=== PATIENT | female | born 1950 | race Caucasian/White ===

== ENCOUNTER → 2016-09-14 | Outpatient (CLI) | payer OTHER | LOC: BRMIMAGING 13:07 | PROVIDERS: ATTEND Internal Medicine Rheumatology | DX: Z13.820 Encounter for screening for osteoporosis (principal); M85.80 Other specified disorders of bone density and structure, unspecified site ==

== ENCOUNTER → 2017-07-31 | Outpatient (CLI) | payer OTHER | LOC: BRMIMAGING 11:58 | PROVIDERS: ATTEND Nurse Practitioner | DX: E04.2 Nontoxic multinodular goiter (principal) ==

== ENCOUNTER → 2017-08-08 | Outpatient (CLI) | payer OTHER ==
[~2017-08-08] MED LIST: LIDOCAINE 1% 300 MG/30 ML SDV ONE
== END ==
LOC: FIMAGING 11:11
PROVIDERS: ATTEND Nurse Practitioner
PROC: 0G9G3ZX Drainage of Left Thyroid Gland Lobe, Percutaneous Approach, Diagnostic (ICD-10-PCS; principal; 2017-08-08)
DX: E04.1 Nontoxic single thyroid nodule (principal)

== ENCOUNTER 2017-08-22 07:54 | Observation (INO) | payer OTHER ==
[2017-08-22] MEDS ORDERED: THROMBIN (BOVINE) 5,000 UNIT VIAL TP ONE (07:57)
[2017-08-22] MEDS ORDERED: BUPIVACAINE/EPI 0.5% 30 ML SDV ONE (07:57)
--- NOTE | 2017-08-22 08:31 | PDHPUP ---
History & Physical Update H&P update statement: This history and physical update is based on an assessment of the patient which was completed after admission or registration (within 24 hours), but prior to the surgery/procedure. H&P update: H&P reviewed & patient examined, no change in patient's condition since H&P completed
[2017-08-22] MEDS ORDERED: CLINDAMYCIN 900 MG/DEXTROSE 50 ML IV ONE (08:34)
[2017-08-22] MEDS ORDERED: LR 1,000 ML IV ONE ×2 (08:35→10:10)
[2017-08-22] MEDS ORDERED: LIDOCAINE 1% 2 ML INJ ID PRN (08:35)
--- NOTE | 2017-08-22 08:39 | PDANEPAE ---
ANE History of Present Illness 66 year old female w/ PMHx of Hashimotos thyroiditis & Rheumatoid Arthritis (on immunosuppression) presents for thyroidectomy. ANE Past Medical History - Cardiovascular History Hx Hypertension: No Hx Arrhythmias: No Hx Chest Pain: No Hx Coronary Artery / Peripheral Vascular Disease: No Hx CHF / Valvular Disease: No Hx Palpitations: No - Pulmonary History Hx COPD: No Hx Asthma/Reactive Airway Disease: No Hx Recent Upper Respiratory Infection: No Hx Oxygen in Use at Home: No Hx Sleep Apnea: No Sleep Apnea Screening Result - Last Documented: Negative - Neurologic History Hx Cerebrovascular Accident: No Hx Seizures: No Hx Dementia: No - Endocrine History Hx Diabetes: No Hypothyroid: Yes Obesity: no Endocrine History Comment: hashimotos - Renal History Hx Renal Disorders: No - Liver History Hx Hepatic Disorders: No - Neurological & Psychiatric Hx Hx Neurological and Psychiatric Disorders: No - Cancer History Hx Cancer: No - Congenital Disorder History Hx Congenital Disorders: Yes Congenital History Comment: rheumatiod arthritis - GI History Hx Gastrointestinal Disorders: No - Other Health History Other Health History: thyroid nodule - Chronic Pain History Chronic Pain: No - Surgical History Prior Surgeries: cholecystectomy. joint replacement hands ANE Review of Systems Review of systems is: negative Review of Systems: - Exercise capacity Exercise capacity: >=4 METS METS (RN): 4 METS ANE Patient History - Allergies Allergies/Adverse Reactions: codeine Allergy (Verified 08/26/13 10:26) morphine Allergy (Verified 08/26/13 10:26) Penicillins Allergy (Verified 08/26/13 10:26) - Home Medications Home medications: home medication list seen and reviewed Home Medications: Abatacept [Orencia] 500 mg IV Q30D 08/21/17 [Last Taken 06/27/17] Alendronate Sodium [Fosamax 70 MG (*)] 70 mg PO WE@0700 08/21/17 [Last Taken 01/24] Levothyroxine [Synthroid 25 mcg (*)] 25 mcg PO DAILY06 08/21/17 [Last Taken ] Methotrexate Sodium/Pf [Methotrexate 50 mg/2 ml Vial] 0.7 ml IM FR 08/21/17 [ Last Taken 08/08/17] RX: Herbals/Supplements -Info Only 1 ea PO DAILY 08/21/17 [Last Taken 08/09/17] - NPO status NPO Status: no food or drink >8 hours - Anes Hx Anes Hx: post operative nausea and vomiting - Smoking Hx Smoking Status: Never smoked Marijuana use: No - Alcohol Use Alcohol Use: Rarely - Family Anes Hx Family Anes Hx: neg - N/A Family Hx Anesthesia Complications: none ANE Labs/Vital Signs - Vital Signs Vital Signs: reviewed preoperatively; see RN documention for details Height: 160.02 cm Weight: 54.431 kg ANE Physical Exam - Airway Neck exam: FROM Mallampati Score: Class 2 Mouth exam: normal dental/mouth exam - Pulmonary Pulmonary: no respiratory distress - Cardiovascular Cardiovascular: regular rate and rhythym - ASA Status ASA Status: III ANE Anesthesia Plan Anesthesia Plan: general endotracheal anesthesia Total IV Anesthesia: No
[2017-08-22] MEDS ORDERED: MIDAZOLAM 2 MG/2 ML VIAL IVP ONE (09:52)
[2017-08-22] MEDS ORDERED: MIDAZOLAM 2 MG/2 ML VIAL ONE (09:53)
[2017-08-22] MEDS ORDERED: fentaNYL 100 MCG/2 ML INJ ONE (10:01)
[2017-08-22] MEDS ORDERED: PROPOFOL 200 MG/20 ML VIAL ONE (10:01)
[2017-08-22] MEDS ORDERED: LIDOCAINE 2% 5 ML SDV ONE (10:02)
[2017-08-22] MEDS ORDERED: ROCURONIUM 50 MG/5 ML VIAL ONE (10:02)
[2017-08-22] MEDS ORDERED: HYDROmorphONE/DILAUDID 1 MG/ML INJ IVP PRN ×2 (10:44→11:44)
[2017-08-22] MEDS ORDERED: LR 500 ML IV PRN (10:44)
[2017-08-22] MEDS ORDERED: fentaNYL 100 MCG/2 ML INJ IVP PRN (10:44)
[2017-08-22] MEDS ORDERED: NALOXONE HCL 0.4 MG/ML INJ IVP PRN (10:44)
[2017-08-22] MEDS ORDERED: HYDROCODONE/APAP 5/325 TAB PO PRN ×2 (10:44→11:44)
[2017-08-22] MEDS ORDERED: ONDANSETRON 4 MG/2 ML VIAL IVP PRN ×2 (10:44→11:44)
[2017-08-22] MEDS ORDERED: PROMETHAZINE HCL 25 MG/ML INJ IVP PRN (10:44)
--- NOTE | 2017-08-22 11:51 | POSTOPPROG ---
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 Procedure: left hemithyroidectomy and central compartment LN biopsy Findings: frozen section showing thyroiditis and no malignancy, R lobe left intact Inf/Abcess present in the surg proc area at time of surgery?: No EBL: Minimal Complications: none Specimen(s): to path
[2017-08-22] MEDS: KETOROLAC 15 MG/1 ML SDV IVP SCH ×3 (13:44→23:58)
[2017-08-22] MEDS: NS W/ 20 KCl/L 1,000 ML IV SCH ×2 (13:50→23:58)
[2017-08-22 14:03] VITALS: RESP 16
[2017-08-22] MEDS: DOCUSATE SODIUM 100 MG CAP PO SCH (20:02)
--- NOTE | 2017-08-22 20:34 | POSTANESTH ---
Post Anesthetic Evaluation Cardiovascular Status: Normal, Stable, Similar to Pre-Op Cond Respiratory Status: Normal, Stable, Similar to Pre-op Cond. Level of Consciousness/Mental Status: Can Participate in Eval, Alert and Oriented Pain Control: Adequate, Prn Tx Ordered Nausea/Vomiting Control: Adequate, Prn Tx Ordered Complications Possibly Related to Anesthesia: None Noted
[2017-08-23 03:12] VITALS: O2SAT 96
[2017-08-23] MEDS: KETOROLAC 15 MG/1 ML SDV IVP SCH (05:28)
[2017-08-23] MEDS ORDERED: LEVOTHYROXINE 25 MCG TAB PO SCH (06:00)
[2017-08-23] MEDS ORDERED: ALENDRONATE SODIUM 70 MG TAB PO SCH (07:00)
[2017-08-23 08:06] VITALS: BP 125/51; PULSE 65; TEMP 97.5
[2017-08-23] MEDS ORDERED: CALCIUM CARBONATE 500 MG CHEWABLE TAB PO SCH (09:00)
--- NOTE | 2017-08-23 10:01 | ASMTCASEMG ---
Living Arrangements What is your living Answers: With Spouse arrangement? Who do you live with? Type Of Residence What kind of residence do Answers: House you live in? Discharge Plan Comments Coordination Status Comments Notes: Pt is a 66 y/o female admitted for a thyroid mass removal. Pt will most likely d/c independent when medically stable. No therapies ordered at this time. CM available for changes. Plan: Independent Date Signed: 08/23/2017 10:00 AM Electronically Signed By:NIKITA Alexander
--- NOTE | 2017-08-23 10:12 | SOAPPROG ---
SOAP Progress Note Assessment/Plan: Assessment/Plan: 66 Y F s/p left thyroidectomy. Pod #1. Doing well. Calcium 8 this morning. Supplement with Tums well in the hospital. Supplement with patient's own 1200 mg calcium supplement 3 times daily. We will recheck labs in outpatient on Monday. Discussed signs of hypocalcemia. Pain controlled. Wounds intact. DC to home. S: minimal pain. wants to go home. O: alert, nad neg chovstek's sign. inc cdi, minimal swelling no wob, ctab rrr 08/23/17 10:09 Objective: Vital Signs Temp Pulse Resp BP Pulse Ox 36.4 C 65 16 125/51 H 96 08/23/17 08:00 08/23/17 08:00 08/23/17 08:00 08/23/17 08:00 08/23/17 08:00 08/22/17 08/23/17 08/24/17 05:59 05:59 05:59 Intake Total 1610 1500 Output Total 1105 700 Balance 505 800 ICD10 Worksheet Patient Problems: Problems Problem Status Onset Thyroid nodule Acute - ICD10 Problem Qualifiers (1) Thyroid nodule
[2017-08-23] MEDS: DOCUSATE SODIUM 100 MG CAP PO SCH (10:14)
--- NOTE | 2017-08-23 17:54 | GOP ---
[f rep st] OPERATIVE REPORT DATE OF OPERATION: 08/22/2017 SURGEON: Jeremiah Echevarria MD PNEUMATIC SYSTEM CONVEYOR OPERATOR: Christina Torres P.A.-C. ANESTHESIOLOGIST: Severo Boggs MD. PREOPERATIVE DIAGNOSIS: Suspicious left thyroid mass. POSTOPERATIVE DIAGNOSIS: Bob thyroiditis. PROCEDURE PERFORMED: Left thyroid lobectomy with central node dissection. FINDINGS: The patient was found to have a thickened left lobe of the thyroid with a central nodule. However, on frozen section this appeared to be benign Bob's with no evidence of malignancy. Fin al path is pending. DESCRIPTION OF PROCEDURE: The patient taken to the operating room, received satisfactory general end otracheal anesthesia by Dr. Boggs, placed in supine position, prepped and draped in the usual steril e fashion. A low collar-type incision was made with cutaneous platysmal flaps elevated to the thyroid cartilage and to the sternal notch. Hemostasis was assured. Strap muscles in the midline. The left lobe of the thyroid was then mobilized and totally from the strap muscles. Both pa rathyroid glands on the left side were identified and dissected off the thyroid capsule and spared fr om injury. The recurrent laryngeal nerve was identified after the anatomy was clearly identified. The thyroid was mobilized by dividing the middle thyroid vein and rotated medially away from the recurre nt nerve. The superior pole vessels were divided with the Harmonic Scalpel. The lobe was dissected aw ay from the nerve off the anterior wall of the trachea. The isthmus was then divided with the Harmoni c Scalpel and the specimen was sent to Pathology for frozen section. The right lobe was examined and did not have any major suspicious nodules. The path report was returned eventually as benign Hashimot o thyroiditis. It was elected to leave the right lobe in place. The wound was irrigated. Hemostasis w as assured. Some topical thrombin was placed in the surgical bed. The strap muscles approximated with 3-0 Vicryl and platysma and subcutaneous tissue were closed with a running 3-0 Vicryl suture. The wo und was infiltrated with 0.5% Marcaine. The skin was closed with 4-0 Monocryl subcuticular stitch. Th ere were no complications. Blood loss was less than 50 cc. In the interim while we were waiting for the frozen section, some enlarged nodes in the central porti on of the neck were dissected free to send for pathologic evaluation and did not appear to be grossly malignant. Hemostasis was assured with hemoclips and electrocautery. She tolerated the procedure wel l. She was taken to recovery room in good condition. /[id number]/MODL
[2017-08-24] MEDS ORDERED: ENOXAPARIN 40 MG/0.4 ML SYR SC SCH (09:00)
== END 2017-08-23 11:56 | disposition home or self-care (01) ==
LOC: F3E 07:54
PROVIDERS: ADMIT Surgery; ATTEND Surgery
DX: E06.3 Autoimmune thyroiditis (principal); E04.1 Nontoxic single thyroid nodule; E03.9 Hypothyroidism, unspecified; M81.0 Age-related osteoporosis without current pathological fracture; M06.9 Rheumatoid arthritis, unspecified
CPT/HCPCS: 38510; 60210; 88305; 88307; 88331; J1885; J2250; J2704; J3010

== ENCOUNTER → 2018-09-05 | Outpatient (CLI) | payer OTHER | LOC: BRMIMAGING 11:00 | PROVIDERS: ATTEND Nurse Practitioner | DX: Z12.31 Encounter for screening mammogram for malignant neoplasm of breast (principal) ==